=== PATIENT | female | born 1960 | race Caucasian/White ===

== ENCOUNTER 2016-11-05 10:08 | Emergency (ER) | payer MEDICAID ==
[~2016-11-05 10:08] MED LIST: CELE40TA PO
[2016-11-05 10:10] VITALS: BP 160/74; PULSE 95; RESP 24; TEMP 98.7; O2SAT 97
[2016-11-05] MEDS ORDERED: ORPHENADRINE INJ 60 MG/2 ML AMP IM ONE (10:30)
[2016-11-05] MEDS ORDERED: KETOROLAC TROMETHAMINE 60 MG/2 ML (IM) VIAL IM ONE (10:30)
[2016-11-05] MEDS ORDERED: DEXAMETHASONE SOD PHOS 20 MG/5 ML VIAL IM ONE (10:45)
--- NOTE | 2016-11-05 10:58 | PD ---
HPI Chief Complaint: Musculoskeletal Complaint Time Seen by Provider: 10:35 Travel History International Travel<30 days: No Contact w/Intl Traveler<30days: No Traveled to known affect area: No History of Present Illness HPI Dishes a 56-year-old female presenting to the emergency department evaluation of lower back pain that started approximately 1 AM this morning. Patient states it's tight and cramping in nature. She rates her pain a 10 out of 10 and states radiating down the back of her right leg. She does report a history of sciatica but states pain is worse and is ever been before. She denies any injury or trauma, she denies exacerbating activities. She does report a history of kidney stones.. Patient took one [id number] Tylenol tablets prior to arrival without relief of her symptoms. She denies any numbness or tingling in extremities, she denies any bladder or bowel continence or saddle paresthesia. PFSH Past Medical History Blood Disorders: No Bipolar Disorder: Yes Anxiety: Yes Depression: Yes Cancer: No Diminished Hearing: No Endocrine: No Genitourinary: Yes (HX OF FREQUENT UTI'S) Immune Disorder: No Implanted Vascular Access Dvce: No Kidney Stones: Yes Musculoskeletal: Yes (sciatic) Reproductive: Yes (PID) Immunizations Current: Yes Schizophrenia: Yes Menopausal: Yes : 1 Para: 0 Miscarriage: 0 : 1 Past Surgical History Abdominal Surgery: Yes (EXPLORATORY LAP) Gynecologic Surgery: Yes (LASER SURGERY (VULVAR SKIN CA)) Other Surgery: No Social History Alcohol Use: No Tobacco Use: Yes (1/2 -1 PPD) Substance Use: No Allergies-Medications (Allergen,Severity, Reaction): Coded Allergies: Contrast Media (Verified Allergy, Severe, RASH, 06/20/14) Penicillin (Verified Allergy, Severe, HIVES, 06/20/14) Sulfa (Verified Allergy, Severe, WELTS AND HIVES, 06/20/14) Reported Meds & Prescriptions Reported Meds & Active Scripts Active Reported Celexa (Citalopram Hydrobromide) 40 Mg Tab 50 Mg PO DAILY Review of Systems Except as stated in HPI: all other systems reviewed are Neg Respiratory: No: Shortness of Breath Gastrointestinal: No: Nausea, Abdominal Pain Musculoskeletal: Positive: Myalgias, Cramping, Pain Neurologic: No: Paresthesia, Incontinence, Sensory Disturbance Physical Exam Narrative GENERAL: Well-nourished, well-developed patient. SKIN: Focused skin assessment warm/dry. HEAD: Normocephalic. EYES: No scleral icterus. No injection or drainage. NECK: Supple, trachea midline. No JVD or lymphadenopathy. CARDIOVASCULAR: Regular rate and rhythm without murmurs, gallops, or rubs. RESPIRATORY: Breath sounds equal bilaterally. No accessory muscle use. GASTROINTESTINAL: Abdomen soft, non-tender, nondistended. MUSCULOSKELETAL: No cyanosis, or edema. Tender to palpation paraspinal musculature in the lumbar region. No spinal tenderness noted, no step-off. Full range of motion in all 4 extremities, 5/5 muscle strength in bilateral lower extremities. BACK: Nontender without obvious deformity. No CVA tenderness. Data Data Last Documented VS Vital Signs Date Time Temp Pulse Resp B/P Pulse Ox O2 Delivery O2 Flow Rate FiO2 11/05/16 10:10 98.7 95 24 160/74 97 Room Air Orders Urinalysis - C+S If Indicated (11/05/16 10:28) Ketorolac Inj (Toradol Inj) (11/05/16 10:30) Orphenadrine Inj (Norflex Inj) (11/05/16 10:30) Dexamethasone Inj (Decadron Inj) (11/05/16 10:45) Labs Laboratory Tests Test 11/05/16 11:20 Urine Color YELLOW Urine Turbidity CLEAR Urine pH 6.0 Urine Specific [place] 1.010 Urine Protein TRACE mg/dL Urine Glucose (UA) NEG mg/dL Urine Ketones NEG mg/dL Urine Occult Blood TRACE Urine Nitrite NEG Urine Bilirubin NEG Urine Urobilinogen LESS THAN 2.0 MG/DL Urine Leukocyte Esterase MOD Urine RBC 2 /hpf Urine WBC 7 /hpf Urine Squamous Epithelial <1 /hpf Cells Urine Bacteria RARE /hpf Microscopic Urinalysis Comment CULT NOT INDICATED MDM Medical Decision Making Medical Screen Exam Complete: Yes Emergency Medical Condition: Yes Interpretation(s) Vital Signs Date Time Temp Pulse Resp B/P Pulse Ox O2 Delivery O2 Flow Rate FiO2 11/05/16 10:10 98.7 95 24 160/74 97 Room Air Differential Diagnosis This spasm versus strain versus sprain versus discogenic pain versus UTI versus other Narrative Course Patient is a 56-year-old female presenting to emergency evaluation of low back pain started at 1 AM this morning with no exacerbating or injury or trauma. Physical examination appears more consistent with muscular skeletal strain however we'll do history kidney stones will check urinalysis. Patient be given Toradol, dexamethasone, and Norflex now. Will reassess. UA is negative. Patient will be sent home with oral anti-inflammatory medication and muscle relaxers. She is encouraged to continue range of motion exercises, apply warm moist heat to affected area, avoid exacerbating activities. She is encouraged to follow-up with her primary doctor additionally she can come back to emergency department for any new or worsening symptoms. Patient verbalized understanding of instructions. Patient is stable for discharge. Diagnosis Primary Impression: Lumbar strain Qualified Code: S39.012A - Lumbar strain, initial encounter Additional Impression: Spasm of lumbar paraspinous muscle Referrals: Primary Care Physician Patient Instructions: General Instructions, Muscle Cramp (GEN), Muscle Strain ( ED) Additional Instructions: Follow-up with your primary doctor Continue range of motion exercises, apply warm moist heat to affected area, avoid exacerbating activities, avoid bed rest Take medications as directed Return to emergency department for any new or worsening symptoms Med/Other Pt SpecificInfo: Prescription(s) given Scripts Prednisone 50 Mg Tab50 Mg PO DAILY #3 TAB Ref 0 Prov:Lyly Reilly 11/05/16 Cyclobenzaprine (Flexeril)10 Mg Tab10 Mg PO TID PRN (MUSCLE SPASM) 10 Days Ref 0 Prov:Lyly Reilly 11/05/16 Ibuprofen 800 Mg [id number] Mg PO Q6HR PRN (PAIN) #40 TAB Ref 0 Prov:Lyly Reilly 11/05/16 Disposition: 01 DISCHARGE HOME Condition: Stable Lyly Reilly November 05, 2016 10:58
[2016-11-05 11:53] LABS: BACTERIA, URINE RARE /hpf; BLOOD, URINE TRACE (NEG); COMMENT (UR) CULT NOT INDICATED; CULTURE IF INDICATED CULT NOT INDICATED; GLUCOSE,URINE NEG (NEG); KETONE, URINE NEG (NEG); NITRITE,URINE NEG (NEG); SQUAMOUS EPITHELIAL CELL URINE <1 /hpf (0-5); URINE COLOR YELLOW (YELLW/STRAW)
[2016-11-05] MEDS ORDERED: CYCL1TAB29 PO (12:10)
[2016-11-05] MEDS ORDERED: IBUP800T23 PO (12:10)
[2016-11-05] MEDS ORDERED: PRED50 PO (12:10)
== END 2016-11-05 12:20 | disposition home or self-care (01) ==
LOC: NEPD 10:08
DX: S39.012A Strain of muscle, fascia and tendon of lower back, initial encounter (principal); M62.830 Muscle spasm of back; X58.XXXA Exposure to other specified factors, initial encounter
CPT/HCPCS: 81001; 96372; 99284; J1100; J1885; J2360